=== PATIENT | male | born 1985 | race Caucasian/White ===

== ENCOUNTER 2024-06-04 16:35 | Emergency (ER) | payer OTHER ==
[~2024-06-04] VITALS: Ht 172.7 cm; Wt 70.3 kg
[2024-06-04 16:55] VITALS: TEMP 98.6
[2024-06-04] MEDS ORDERED: AMOX-430 PO (17:20)
[2024-06-04] MEDS ORDERED: dexaMETHasone SOD PHOSPHATE 1 ML ONE (17:28)
[2024-06-04] MEDS: dexaMETHasone SOD PHOSPHATE 10 MG/ML VIAL IV ONE (17:35)
[2024-06-04] MEDS: dexaMETHasone SOD PHOSPHATE 4 MG/ML VIAL IM ONE (17:36)
[2024-06-04 17:47] VITALS: BP 135/82; O2SAT 100
== END 2024-06-04 17:48 | disposition home or self-care (01) ==
LOC: ER 16:40
DX: J02.0 Streptococcal pharyngitis (principal); I88.9 Nonspecific lymphadenitis, unspecified
CPT/HCPCS: 99283; 96372; J1100